=== PATIENT | male | born 1975 | race Caucasian/White ===

== ENCOUNTER 2017-04-07 18:07 | Emergency (ER) | payer OTHER ==
[~2017-04-07] VITALS: Ht 177.8 cm; Wt 118.0 kg
[2017-04-07] MEDS ORDERED: POVIDONE-IODINE 10% 15 ML SOLUTION UD TP ONE (19:30)
[2017-04-07] MEDS ORDERED: HYDROCODONE/ACETAMINOPHEN 10-325 MG TABLET PO ONE (19:30)
[2017-04-07] MEDS ORDERED: LIDOCAINE HCL 1% 10 ML VIAL INJ ONE (19:30)
[2017-04-07] MEDS ORDERED: SULFAMETHOX/TRIMETH DS 800-160 MG/TABLET PO ONE (20:45)
[2017-04-07] MEDS ORDERED: CEPHALEXIN MONOHYDRATE 500 MG CAPSULE PO ONE (20:45)
[2017-04-07 20:59] VITALS: BP 144/89
== END 2017-04-07 21:08 | disposition home or self-care (01) ==
LOC: EMS 18:09
DX: L02.31 Cutaneous abscess of buttock (principal); F17.210 Nicotine dependence, cigarettes, uncomplicated
CPT/HCPCS: 10060; 99284; 99406; J3490

== ENCOUNTER 2019-04-09 07:59 | Emergency (ER) | payer SELFPAY ==
[~2019-04-09] VITALS: Ht 175.3 cm; Wt 118.2 kg
[2019-04-09] MEDS ORDERED: LIDOCAINE 1% 10 ML VIAL INJ ONE (08:30)
[2019-04-09] MEDS ORDERED: DOXYCYCLINE HYCLATE 100 MG CAPSULE PO ONE (08:30)
[2019-04-09] MEDS ORDERED: IBUPROFEN 600 MG TABLET PO ONE (08:30)
[2019-04-09 09:25] VITALS: BP 131/86
== END 2019-04-09 09:38 | disposition home or self-care (01) ==
LOC: EMS 08:00
DX: L02.31 Cutaneous abscess of buttock (principal); F17.210 Nicotine dependence, cigarettes, uncomplicated
CPT/HCPCS: 10060; 99284; 99406; J3490

== ENCOUNTER 2020-06-14 22:47 | Emergency (ER) | payer OTHER ==
[~2020-06-14] VITALS: Ht 175.3 cm; Wt 120.5 kg
[2020-06-14 22:49] VITALS: BP 153/92
== END 2020-06-15 01:18 | disposition home or self-care (01) ==
LOC: EMS 22:47
DX: N40.0 Benign prostatic hyperplasia without lower urinary tract symptoms (principal); I10 Essential (primary) hypertension; F17.210 Nicotine dependence, cigarettes, uncomplicated

== ENCOUNTER 2020-11-05 17:22 | Emergency (ER) | payer OTHER ==
[~2020-11-05] VITALS: Ht 175.3 cm; Wt 120.5 kg
[2020-11-05 19:31] VITALS: BP 148/76
== END 2020-11-05 19:32 | disposition home or self-care (01) ==
LOC: EMS 17:22
DX: L02.415 Cutaneous abscess of right lower limb (principal); F17.210 Nicotine dependence, cigarettes, uncomplicated; F12.90 Cannabis use, unspecified, uncomplicated
CPT/HCPCS: 99283

== ENCOUNTER 2021-01-04 10:24 | Emergency (ER) | payer OTHER ==
[~2021-01-04] VITALS: Ht 175.3 cm; Wt 165.9 kg
[2021-01-04 14:30] VITALS: BP 132/70
== END 2021-01-04 14:31 | disposition home or self-care (01) ==
LOC: EMS 10:36
DX: M79.672 Pain in left foot (principal)
CPT/HCPCS: 99283; 99284

== ENCOUNTER 2022-01-20 02:25 | Emergency (ER) | payer OTHER ==
[2022-01-20] MEDS ORDERED: TADA20TA31 PO (02:37)
[2022-01-20] MEDS ORDERED: TAMS-13 PO (02:37)
[2022-01-20 03:49] LABS: APPEARANCE,URINE CLEAR (CLEAR); BILIRUBIN,URINE NEGATIVE (NEGATIVE); GLUCOSE, URINE (UA) NEGATIVE (NEGATIVE); KETONES,URINE NEGATIVE (NEGATIVE); LEUKOCYTE ESTERASE ,URINE TRACE (NEGATIVE); NITRATE,URINE NEGATIVE (NEGATIVE); OCCULT BLOOD,URINE NEGATIVE (NEGATIVE); PROTEIN,URINE TRACE mg/dL (NEGATIVE)
[2022-01-20 03:59] LABS: BACTERIA,URINE None Seen /HPF (None Seen); RBC,URINE 0-2 /HPF (0-2); WBC,URINE 0-2 /HPF (0-5)
[2022-01-20] MEDS ORDERED: SULF-261 PO (04:11)
[2022-01-20 04:16] VITALS: BP 145/76
== END 2022-01-20 04:25 | disposition home or self-care (01) ==
LOC: EMS 02:26
DX: R39.11 Hesitancy of micturition (principal); N41.9 Inflammatory disease of prostate, unspecified; N40.0 Benign prostatic hyperplasia without lower urinary tract symptoms; Z98.890 Other specified postprocedural states
CPT/HCPCS: 81001; 99283

== ENCOUNTER 2022-08-12 11:15 | Emergency (ER) | payer OTHER ==
[~2022-08-12] VITALS: Ht 175.3 cm; Wt 113.6 kg
[~2022-08-12 11:15] MED LIST: SULF-261 PO; TADA20TA31 PO; TAMS-13 PO
[2022-08-12 12:19] LABS: COVID AG,FIA SOURCE NASOPHARYNGEAL
[2022-08-12] MEDS ORDERED: IBUP-1492 PO (13:13)
[2022-08-12 13:34] VITALS: BP 149/87
== END 2022-08-12 13:47 | disposition home or self-care (01) ==
LOC: EMS 11:27
DX: J04.0 Acute laryngitis (principal); N40.0 Benign prostatic hyperplasia without lower urinary tract symptoms; Z20.822 Contact with and (suspected) exposure to COVID-19
CPT/HCPCS: 87430; 99283

== ENCOUNTER 2023-12-08 22:48 | Emergency (ER) | payer OTHER ==
[~2023-12-08] VITALS: Ht 175.3 cm; Wt 115.1 kg
[~2023-12-08 22:48] MED LIST changes: +IBUP-1492 PO; -SULF-261 PO; -TAMS-13 PO; +TAMS0.4C94 PO
[2023-12-08 22:58] VITALS: BP 141/91; PULSE 98; RESP 18; TEMP 98.2
[2023-12-09] MEDS ORDERED: BACTDSB PO (00:26)
[2023-12-09] MEDS ORDERED: CEPH-558 PO (00:26)
[2023-12-09] MEDS: CefTRIAXone SODIUM 1 GM/VIAL IM ONE (00:42)
[2023-12-09] MEDS: SULFAMETHOX/TRIMETH DS 800-160 MG/TABLET PO ONE (00:42)
[2023-12-09] MEDS: LIDOCAINE/PF 1% 2 ML VIAL IM ONE (00:43)
== END 2023-12-09 01:00 | disposition home or self-care (01) ==
LOC: EMS 22:49
DX: L03.211 Cellulitis of face (principal)
CPT/HCPCS: 99283; 96372; J0696; J3490